=== PATIENT | male | born 1950 | race African-American/Black ===

== ENCOUNTER → 2018-12-29 | Outpatient (CLI) | payer OTHER ==
[2015-03-05 13:18] VITALS: BP 174/112
[~2018-12-29] MED LIST: ALLOPURINAL; AMIT100T PO; AMIT50TA PO; AMLO5TAB10 PO; ASPI-630 PO; AZIL1TAB3 PO; CARV25TA2 PO; CLON0.2T PO; FOLI1TAB16 PO; HYDR-2145 PO; HYDR-2769 PO; LOSA-73 PO; METH2.5T PO; METO100T7 PO
--- NOTE | 2018-12-29 19:35 | PAIN ---
DATE OF SERVICE: 12/29/2018 CHIEF COMPLAINT: Low back, bilateral lower extremity pain. HISTORY OF PRESENT ILLNESS: This is a 68-year-old male who presents with history of pain in the low back for about 30 years. The patient reports it is on and off, but it is getting worse over the past year or so and he fell in a bathtub about a year ago, which increased the back pain, also some pain in the right shoulder from that fall. He has had some x-rays of the shoulder showing some generalized arthritis, also had some lumbar films showing anterior subluxation L4 on L5 and degenerative changes throughout the lumbar spine with severe degenerative changes L5-S1 disk. The patient reports it is worse with walking, standing, changing positions across the low back into the posterior gluteus, posterior thighs, but generally not any further than that. The patient reports his right shoulder hurts too, but only with weightbearing, reaching or grabbing or reaching above his head on the right side, no pain in the left side. The patient reports pain in his back is constant, it is aching. Reports it awakes him from sleep about four times a night, does not affect his bowel or bladder control or ability to walk, however, but has some increased fatigability in both the legs. He cannot walk as far as he used to he reports. The patient has not had any current physical therapies, no chiropractic treatment or other treatment except for some injections, he believes in his back about 20 years ago, which were helpful at that time. The patient reports no loss of motor function again, but significant fatigability in the low back and the legs. The patient rates his disability from 0-10, 10 being the worst, is a 10 in all categories, family and home responsibilities, recreation, social activity, occupation, self-care, sexual behavior and life support activities. PAST MEDICAL HISTORY: Significant for hypertension, sleep apnea, pneumonia, cigar smoking, arthritis, gout, rheumatoid arthritis, osteoarthritis. PREVIOUS SURGERY: Includes a hemorrhoidectomy. CURRENT MEDICATIONS: Include carvedilol, amlodipine, hydrochlorothiazide, losartan, daily baby aspirin, clonidine, allopurinol and hydrocodone. ALLERGIES: The patient has no known drug allergies. FAMILY HISTORY: Significant for heart disease. SOCIAL HISTORY: The patient does not drink alcohol. Smokes cigars about five cigars a week. Does not use any illegal, illicit or recreational drugs. He is single. Lives locally in [place], [place]. Reports he is currently retired. REVIEW OF SYSTEMS: Positive for those items mentioned in history of present illness. All systems reviewed and otherwise negative. It is complete, full and well documented on the patient's chart. PHYSICAL EXAMINATION: VITAL SIGNS: The patient's blood pressure is 135/96, pulse 60, respirations 16, temperature is 98.0 degrees Fahrenheit, height 6 feet 2 inches, weight is 198 pounds. GENERAL: The patient is awake, alert, oriented, appropriate, very pleasant demeanor. HEENT: Shows normocephalic, atraumatic. Extraocular movements intact and symmetrical. Oral cavity: Mucous membranes moist and pink. Dentition is intact. NECK: Shows anterior throat supple without palpable lymphadenopathy noted. Swallow reflex is symmetrical. CHEST: Shows normal on inspection. Breath sounds are clear to auscultation bilaterally. HEART: Shows S1, S2 clear. No murmurs auscultated. ABDOMEN: Soft, nontender, nondistended. No palpable organomegaly is noted. No rebound or guarding demonstrated. BACK: Shows spine grossly in the midline. Normal appearing thoracic kyphosis and lumbar lordotic curvature. The patient shows good rotational motion of lumbar spine, both laterally greater than 10 degrees, right and left as well as extension greater than 10 degrees, forward flexion 45 degrees without exacerbation of pain. EXTREMITIES: The patient's lower extremities show deep tendon reflexes at 1+ in the patellar and tendo-calcaneus tendons. Motor exam is approximately 4 on a scale of 5, but equal and symmetrical dorsiflexion, extension, quadriceps and hamstring flexion. Peripheral pulses are 1+ posterior tibia. No peripheral edema is noted. Lower extremities are warm and dry to touch, equal in color and appearance. No clubbing, no cyanosis. No peripheral edema. Gaenslen's and Jaswant's maneuvers are negative bilaterally. Straight leg raise noted to be negative bilaterally as well. The patient's upper extremities show deep tendon reflexes 2+ in the biceps and triceps tendons. 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 The patient's right shoulder shows full rotational motion both actively and passively without significant pain reported. There is significant pain, however, over the superior and posterior aspect of the acromioclavicular joint on the right side only. Left side is nontender. No radiation is demonstrated. SKIN: Shows warm and dry, good turgor. No edema. No sores, rashes or bruising throughout. IMPRESSION: 1. This is a 68-year-old male with a long history of low back pain 30+ years by his estimation. 2. Lumbar spine films showing degenerative change, most significantly at L5-S1 as noted. 3. Hypertension. 4. Arthritis. 5. Right shoulder pain. PLAN: Options were discussed with the patient including conservative medical management, physical therapy, interventional technique. He would like to pursue a most conservative course. We will order physical therapy with water therapy as he has not done this before and would like to try this as previous physical therapies he reports had not been significantly helpful and again many years ago. We will order physical therapy with water therapy and once the patient is complete with this, we will follow up for progress evaluation at that time and the patient understands and agrees and will follow up as scheduled. REHAN CHRISTIAN MD DR: KASANDRA/laura JOB#: [id number] / [id number] Cole Pelaez MD
== END ==
LOC: EDBD 10:20 → PNCL 10:27
PROVIDERS: ATTEND Anesthesiology
DX: M54.5 Low back pain (principal); I10 Essential (primary) hypertension; M19.90 Unspecified osteoarthritis, unspecified site; M25.511 Pain in right shoulder; M10.9 Gout, unspecified; M06.9 Rheumatoid arthritis, unspecified; F17.290 Nicotine dependence, other tobacco product, uncomplicated; Z79.899 Other long term (current) drug therapy
CPT/HCPCS: G0463